=== PATIENT | male | born 1930 | race Caucasian/White ===

== ENCOUNTER 2019-06-20 05:07 | Emergency (ER) | payer OTHER ==
[~2019-06-20] VITALS: Ht 165.1 cm; Wt 63.5 kg
[~2019-06-20 05:07] MED LIST: METF-370 PO
[2019-06-20 06:18] LABS: Basophils # (auto) 0.1 uL; Basophils % (auto) 0.9 % (0.0-2.0); Eosinophils # (auto) 0.2 uL; Eosinophils % (auto) 2.1 % (0.0-7.0); Hematocrit 36.5 % (41.0-53.0); Hemoglobin 12.6 g/dL (13.5-17.5); Lymphocytes # (auto) 0.8 uL; Lymphocytes % (auto) 10.3 % (10.0-50.0); Mean Corpuscular Hemoglobin 30.8 pg (28.0-32.0); Mean Corpuscular Hgb Conc. 34.6 g/dL (32.0-36.0); Mean Corpuscular Volume 89.1 fL (80.0-100.0); Monocytes # (auto) 0.6 uL; Neutrophils # (auto) 6.2 uL; Neutrophils % (auto) 78.7 % (37.0-80.0); Nucleated Red Blood Cells % 0.1 %; Platelet Count (auto) 199 10^3/uL (140-450); Red Cell Distribution Width 17.3 % (11.8-14.3); White Blood Cell 7.9 10^3/uL (4.4-10.8)
[2019-06-20 06:25] LABS: INR < 0.93 (0.9-1.15); Partial Thromboplastin Time 26.9 sec (23.64-32.05)
[2019-06-20 06:27] LABS: Urine Bacteria NONE SEEN /hpf (None Seen); Urine Blood 3+ /uL (Negative); Urine Specific Gravity 1.018 (1.001-1.035); Urine WBC 4378 /hpf (0 - 3)
[2019-06-20 06:30] LABS: Albumin 3.3 g/dL (3.4-5.0); Anion Gap 7 (5-15); Blood Urea Nitrogen 26 mg/dL (7-18); Calcium 8.2 mg/dL (8.5-10.1); Carbon Dioxide 24 mmol/L (21-32); Chloride 110 mmol/L (98-107); Glucose 107 mg/dL (74-106); Potassium 3.9 mmol/L (3.5-5.1); Sodium 141 mmol/L (136-145)
[2019-06-20 06:33] LABS: Alanine Aminotransferase 13 U/L (16-61); Aspartate Aminotransferase 10 U/L (15-37); GFR African American 56 mL/min; GFR Non-African American 46 mL/min
[2019-06-20 06:37] LABS: Alkaline Phosphatase 92 U/L (45-117); Bilirubin, Total 0.3 mg/dL (0.2-1.0); Total Protein 6.8 g/dL (6.4-8.2)
[2019-06-20] MEDS ORDERED: cefTRIAXone 1GM/50ML D5W 50 ML IV ONE (06:45)
[2019-06-20 07:20] VITALS: BP 143/61
== END 2019-06-20 07:28 | disposition home or self-care (01) ==
LOC: EDUNIT# 05:07 → EDBD 05:07 → ER 05:12 → EDBD 05:12 → ER 07:28
DX: N39.0 Urinary tract infection, site not specified (principal); E11.9 Type 2 diabetes mellitus without complications; Z86.39 Personal history of other endocrine, nutritional and metabolic disease
CPT/HCPCS: 36415; 71045; 80053; 81001; 83880; 84484; 85025; 85610; 85730; 93005; 94761; 96365; 99284; J0696

== ENCOUNTER 2019-08-06 08:58 | Emergency (ER) | payer OTHER ==
[2019-08-06 10:17] LABS: Urine Bacteria NONE SEEN /hpf (None Seen); Urine Blood 3+ /uL (Negative)
[2019-08-06 10:32] LABS: Urine Specific Gravity 1.018 (1.001-1.035)
[2019-08-06 10:33] LABS: Urine WBC 2 /hpf (0 - 3)
[2019-08-06] MEDS ORDERED: cefTRIAXone 1GM/50ML D5W 50 ML IV ONE (10:45)
[2019-08-06 11:00] VITALS: BP 126/62
[2019-08-06] MEDS ORDERED: cefTRIAXone W LIDOCAINE 1 GM IM IM ONE (11:00)
== END 2019-08-06 11:41 | disposition home or self-care (01) ==
LOC: ER 08:58
DX: N39.0 Urinary tract infection, site not specified (principal); E11.9 Type 2 diabetes mellitus without complications; E07.9 Disorder of thyroid, unspecified; Z90.49 Acquired absence of other specified parts of digestive tract; Z79.84 Long term (current) use of oral hypoglycemic drugs
CPT/HCPCS: 81001; 96372; 99283; J0696

== ENCOUNTER 2020-11-16 17:31 | Emergency (ER) | payer OTHER ==
[~2020-11-16] VITALS: Ht 165.1 cm; Wt 63.5 kg
[2020-11-16 17:41] VITALS: BP 154/72
== END 2020-11-16 20:18 | disposition left against medical advice (07) ==
LOC: ER 17:32
DX: K59.00 Constipation, unspecified (principal); Z53.21 Procedure and treatment not carried out due to patient leaving prior to being seen by health care provider